=== PATIENT | female | born 1940 | race Caucasian/White ===

== ENCOUNTER 2018-10-15 10:39 | Outpatient (CLI) | payer MEDICARE ==
[~2018-10-15 10:39] MED LIST: ACID1TAB PO; ALBU18HF INH; ALPR0.257 PO; ASPI-496 PO; CEPH-368 PO; CETI10CA PO; ESTR10TA PO; FLUT1BLS INH; FLUT1DIS3 INH; INSU100C5 SQ-INSULIN; INSU100V8 SQ; IPRA3AMP30 NEB; LEVO25TA2 PO; LEVO5TAB29 PO; LISI2.5T PO; LISI5TAB7 PO; MAGN400T7 PO; MELA1TAB8 PO; METH250T3 PO; MONT10TA6 PO; NEBI10TA3 PO; NEBI5TAB3 PO; NITR0.3T5 SL; NITR1PAT22 TD; NTG; OLME1TAB25 PO; OLME1TAB28 PO; OMEG1CAP23 PO; PRAV10TA2 PO; RANI300T PO; SPIR25TA5 PO; [UNRECOGNIZED DRUG - OTHER]; [UNRECOGNIZED DRUG - OTHER]
== END 2018-10-15 23:59 | disposition home or self-care (01) ==
LOC: CVU 10:39
PROVIDERS: ATTEND Internal Medicine Cardiovascular Disease
DX: I10 Essential (primary) hypertension (principal); I07.1 Rheumatic tricuspid insufficiency
CPT/HCPCS: 93306

== ENCOUNTER 2020-10-29 13:38 | Emergency (ER) | payer MEDICARE ==
[~2020-10-29] VITALS: Ht 154.9 cm; Wt 68.0 kg
[~2020-10-29 13:38] MED LIST changes: -MAGN400T7 PO; +MAGN400T9 PO
--- NOTE | 2020-10-29 13:50 | NUR ---
PT BIB EMS FOR CHEST PAIN AND DIZZINESS X2 DAYS. DENIES CHEST PAIN AT THIS TIME. TOOK 8 ASA. PAIN WAS STERNAL. NO N/V, SOB OR RADIATING PAIN.
[2020-10-29] MEDS ORDERED: SODIUM CHLORIDE FLUSH 10ML SYR IVF ONE (14:00)
[2020-10-29] MEDS ORDERED: ALBUTEROL/IPRATROPIUM 2.5MG/0.5MG, 3 ML NPPB ONE (14:00)
[2020-10-29 14:16] LABS: BASOPHILS % (AUTO) 1 % (0-1); EOSINOPHILS % (AUTO) 2 % (1-7); LYMPHOCYTES % (AUTO) 27 % (22-44); MEAN CORPUSCULAR HEMOGLOBIN 31.5 pg (27.0-34.8); MEAN PLATELET VOLUME 7.2 fL (7.4-10.4); MONOCYTES % (AUTO) 9 % (2-9); NEUTROPHILS % (AUTO) 61 % (42-75); PLATELET COUNT 328 x10^3/uL (130-400); RED BLOOD COUNT 3.99 x10^6/uL (3.82-5.3); RED CELL DISTRIBUTION WIDTH 14.1 % (9.6-15.2)
[2020-10-29 14:19] LABS: MD NO
[2020-10-29 14:26] LABS: ALANINE AMINOTRANSFERASE 29 U/L (12-78); ALBUMIN 3.5 g/dL (3.4-5.0); ANION GAP 7 mmol/L (5-15); CALCIUM 8.7 mg/dL (8.5-10.1); CHLORIDE 100 mmol/L (98-107); CREATININE 0.63 mg/dL (0.55-1.02)
[2020-10-29 14:31] LABS: ALKALINE PHOSPHATASE 93 U/L (45-117); BILIRUBIN,TOTAL 0.7 mg/dL (0.2-1.0); TOTAL PROTEIN 6.3 g/dL (6.4-8.2); TROPONIN I < 0.015 ng/mL (0.000-0.045)
--- NOTE | 2020-10-29 15:00 | NUR ---
PT AMBULATED TO BATHROOM W STEADY GAIT.
[2020-10-29] MEDS ORDERED: ALBUTEROL/IPRATROPIUM 2.5MG/0.5MG, 3 ML ONE (15:57)
--- NOTE | 2020-10-29 16:05 | NUR ---
REECE IN PROCESS
--- NOTE | 2020-10-29 17:00 | NUR ---
PT GIVEN CRACKERS, JUICE. CHECKED BS. [id number]
[2020-10-29] MEDS ORDERED: PRAV80TA2 PO (17:19)
[2020-10-29] MEDS ORDERED: LEVO75TA5 PO (17:19)
[2020-10-29] MEDS ORDERED: HYDR25TA6 PO (17:20)
--- NOTE | 2020-10-29 18:31 | NUR ---
Patient given discharge instructions and they have confirmed that they understand the instructions. Patient ambulatory with steady gait.
--- NOTE | 2020-10-29 18:31 | NUR ---
PT READY FOR DC. PREPARING DC PAPERS
[2020-10-29 18:37] VITALS: BP 156/88
== END 2020-10-29 18:47 | disposition home or self-care (01) ==
LOC: ED 13:56
DX: R06.00 Dyspnea, unspecified (principal); R42 Dizziness and giddiness; R07.9 Chest pain, unspecified; E11.9 Type 2 diabetes mellitus without complications; I25.10 Atherosclerotic heart disease of native coronary artery without angina pectoris; E11.65 Type 2 diabetes mellitus with hyperglycemia; E03.9 Hypothyroidism, unspecified; Z88.1 Allergy status to other antibiotic agents; Z88.6 Allergy status to analgesic agent; Z88.3 Allergy status to other anti-infective agents
CPT/HCPCS: 36415; 71045; 80053; 82962; 83735; 83880; 84484; 85025; 93005; 94640; 99285